=== PATIENT | female | born 1975 | race Caucasian/White ===

== ENCOUNTER 2019-10-10 11:34 | Inpatient (IN) | payer OTHER ==
[~2019-10-10] VITALS: Ht 160 cm; Wt 92.5 kg
[2019-10-10 11:41] VITALS: Ht 160 cm; Wt 92.5 kg
[2019-10-10 12:30] LABS: PLATELET COUNT 350 x10^3mcL (130-400); RED CELL DISTRIBUTION WIDTH 19.7 % (11.5-14.5)
[2019-10-10 12:37] LABS: UA SPECIFIC GRAVITY >=1.030 (1.005-1.035); microscopic required? YES; urine erythrocyte 3+ (NEGATIVE)
[2019-10-10 13:33] LABS: ALBUMIN 3.5 g/dL (3.4-5.0); ALKALINE PHOSPHATASE 55 U/L (46-116); ALT/SGPT 35 U/L (14-59); AST/SGOT 16 U/L (15-37); BILIRUBIN TOTAL 0.52 mg/dL (0.20-1.00); CARBON DIOXIDE 25.9 mmol/L (21-32); CHLORIDE SERUM 106 mmol/L (98-107); CREATININE SERUM 0.8 mg/dL (0.6-1.0); GFR1 > 60 mL/min; GLUCOSE SERUM 127 mg/dL (74-106); LIPASE 175 IU/L (73-393); POTASSIUM SERUM 3.9 mmol/L (3.5-5.1); SODIUM SERUM 142 mmol/L (136-145); TOTAL PROTEIN, SERUM 7.6 g/dL (6.4-8.2)
[2019-10-10] MEDS ORDERED: NORCO 10-325 T1 EACH PO (14:34)
[2019-10-10 16:38] VITALS: BP 137/78
[2019-10-10 16:40] LABS: RED BLOOD CELLS 4.26 M/mm3 (4.10-5.10)
[2019-10-10 16:55] LABS: TOTAL IRON BINDING CAPACITY 420 ug/dL (250-450)
[2019-10-10 17:20] LABS: IRON 17 ug/dL (50-170)
[2019-10-10 20:31] LABS: AMPHETAMINE QUAL UR NONE DETECTED (See below)
[2019-10-10 20:36] VITALS: BP 113/51
[2019-10-11 05:46] VITALS: BP 115/63
[2019-10-11 06:57] LABS: BASOPHIL % 0.4 % (0-2); PLATELET COUNT 313 x10^3mcL (130-400)
[2019-10-11 07:22] LABS: CALCIUM 7.5 mg/dL (8.5-10.1); CARBON DIOXIDE 26.5 mmol/L (21-32); CHLORIDE SERUM 108 mmol/L (98-107); CREATININE SERUM 0.6 mg/dL (0.6-1.0); GFR1 > 60 mL/min; GLUCOSE SERUM 93 mg/dL (74-106); MAGNESIUM 1.6 mg/dL (1.8-2.4); PHOSPHOROUS 2.6 mg/dL (2.5-4.9); SODIUM SERUM 143 mmol/L (136-145)
[2019-10-11 07:28] LABS: RED CELL DISTRIBUTION WIDTH 19.8 % (11.5-14.5)
[2019-10-11 08:45] VITALS: BP 105/52
[2019-10-11 12:36] VITALS: BP 102/44
[2019-10-11 17:50] VITALS: BP 122/55
[2019-10-12 05:36] VITALS: BP 112/65
[2019-10-12 07:20] LABS: BASOPHIL % 0.4 % (0-2); PLATELET COUNT 278 x10^3mcL (130-400)
[2019-10-12 07:48] LABS: CALCIUM 7.7 mg/dL (8.5-10.1); CARBON DIOXIDE 24.8 mmol/L (21-32); CHLORIDE SERUM 105 mmol/L (98-107); CREATININE SERUM 0.5 mg/dL (0.6-1.0); GFR1 > 60 mL/min; GLUCOSE SERUM 103 mg/dL (74-106); MAGNESIUM 1.7 mg/dL (1.8-2.4); PHOSPHOROUS 3.4 mg/dL (2.5-4.9); POTASSIUM SERUM 3.1 mmol/L (3.5-5.1); SODIUM SERUM 139 mmol/L (136-145)
[2019-10-12 08:27] LABS: RED CELL DISTRIBUTION WIDTH 19.6 % (11.5-14.5)
[2019-10-12 08:36] VITALS: BP 117/52
[2019-10-12 12:23] LABS: rbc morphology (normal/abnorm) ABNORMAL (NORMAL)
[2019-10-12 12:25] LABS: burr cell (echinocyte) 1+; ovalocyte/elliptocyte 1+
[2019-10-12 13:52] VITALS: BP 116/57
[2019-10-12 14:52] LABS: BASOPHIL % 1.1 % (0-2); PLATELET COUNT 342 x10^3mcL (130-400)
[2019-10-12 14:55] LABS: RED CELL DISTRIBUTION WIDTH 19.1 % (11.5-14.5)
[2019-10-12 17:15] VITALS: BP 102/52
[2019-10-12 20:37] VITALS: BP 105/45
[2019-10-13 05:35] VITALS: BP 100/52
[2019-10-13 07:07] LABS: BASOPHIL % 0.4 % (0-2); PLATELET COUNT 310 x10^3mcL (130-400)
[2019-10-13 07:19] LABS: CALCIUM 8.2 mg/dL (8.5-10.1); CARBON DIOXIDE 27.8 mmol/L (21-32); CHLORIDE SERUM 106 mmol/L (98-107); CREATININE SERUM 0.6 mg/dL (0.6-1.0); GFR1 > 60 mL/min; GLUCOSE SERUM 94 mg/dL (74-106); SODIUM SERUM 141 mmol/L (136-145)
[2019-10-13 07:51] VITALS: BP 111/60
[2019-10-13 08:00] LABS: RED CELL DISTRIBUTION WIDTH 19.9 % (11.5-14.5)
[2019-10-13] MEDS ORDERED: FER300 PO (11:18)
[2019-10-13] MEDS ORDERED: FLA500 PO ×2 (11:19→14:54)
[2019-10-13 11:53] VITALS: BP 111/60
[2019-10-13] MEDS ORDERED: FERROUS SULFAT325 M2 PO (14:54)
[2019-10-13 15:47] VITALS: BP 112/60
== END 2019-10-13 17:26 | disposition home or self-care (01) | DRG 720 ==
LOC: ED 11:34 → DU 14:31 → MU 10-11 17:31
PROVIDERS: Emergency Medicine; ADMIT Internal Medicine; ATTEND Internal Medicine
DX: A41.9 Sepsis, unspecified organism (principal); K51.90 Ulcerative colitis, unspecified, without complications; R65.20 Severe sepsis without septic shock; K57.92 Diverticulitis of intestine, part unspecified, without perforation or abscess without bleeding; K52.9 Noninfective gastroenteritis and colitis, unspecified; D50.9 Iron deficiency anemia, unspecified; E66.9 Obesity, unspecified; D64.9 Anemia, unspecified; Z93.2 Ileostomy status; Z83.3 Family history of diabetes mellitus; Z82.49 Family history of ischemic heart disease and other diseases of the circulatory system
CPT/HCPCS: 87046; 87046-59; G0378; J1170; J1940; J1956; J2270; J2405; J2543; J2916; J3010; J3490; J7030; J7040; Q0092